=== PATIENT | male | born 1985 ===

== ENCOUNTER 2021-10-19 05:55 | Day surgery (SDC) | payer OTHER ==
[~2021-10-19] VITALS: Ht 172.7 cm; Wt 96.2 kg
== END 2021-10-19 13:45 | disposition home or self-care (01) ==
LOC: CIR.AMB 05:55
PROVIDERS: ATTEND Orthopaedic Surgery Hand Surgery
DX: G56.01 Carpal tunnel syndrome, right upper limb (principal); Z20.822 Contact with and (suspected) exposure to COVID-19; E78.00 Pure hypercholesterolemia, unspecified